=== PATIENT | female | born 1995 | race American Indian/Alaskan Native ===

== ENCOUNTER 2019-04-24 12:16 | Inpatient (IN) | payer BC, MEDICAID ==
[2019-04-24] MEDS ORDERED: AMPICILLIN/NS 2 GM/100 ML 2 GM/100 ML BAG IV ONE ×2 (12:38→13:30)
[2019-04-24] MEDS ORDERED: LACTATED RINGERS 1,000 ML ONE (12:38)
[2019-04-24] MEDS ORDERED: TERBUTALINE 1 MG/1 ML INJ IVP PRN (13:30)
[2019-04-24] MEDS ORDERED: MINERAL OIL 30 ML ORAL LIQD PO PRN (13:30)
[2019-04-24] MEDS ORDERED: ePHEDrine SULFATE 50 MG/1 ML INJ IV PRN (13:30)
[2019-04-24] MEDS ORDERED: fentaNYL 100 MCG/2 ML INJ IV PRN (13:30)
[2019-04-24] MEDS ORDERED: LIDOCAINE (2%) 20 MG/1 ML VIAL 20 ML MDV INFILTRATI ONE ×2 (13:30→17:27)
[2019-04-24] MEDS ORDERED: TERBUTALINE 1 MG/1 ML INJ SUB-Q PRN (13:30)
--- NOTE | 2019-04-24 13:41 | History and Physical Report ---
History of Present Illness Date of examination: 04/24/19 Date of admission: 04/24/19 Chief complaint: Contractions History of present illness: 24yo G 2 P 0 0 1 0 at 40 weeks gestation here with c/o UCs q5mins that started on 04/23/19. She reports +FMs but denies VB or LOF. She is a [employer] patient who initiated care at 21 weeks gestation. 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 LABS: O pos, Antibody Screen neg, RI, VDRL NR, HBsAg neg, HIV neg, , HSV II pos, Diabetes Screen 87, GC/CT/Trich neg, GBS pos. Past History Past Medical History: asthma Past Surgical History: no surgical history [employer] History: herpes Family/Genetic History: hypertension, other (Lupus) Social history: single, lives with family, full code. denies: smoking, alcohol abuse, prescription drug abuse, IV drug use - Obstetrical History Expected Date of Delivery: 04/24/19 Actual Gestation: 40 Week(s) 0 Day(s) : 2 Para: 0 Hx # Term Pregnancies: 0 Number of Pregnancies: 0 Spontaneous Abortions: 1 Induced : 0 Number of Living Children: 0 Medications and Allergies Allergies Allergy/AdvReac Type Severity Reaction Status Date / Time iodine Allergy Rash Verified 04/24/19 13:29 sulfamethoxazole AdvReac Angioedema Verified 04/24/19 13:46 [From Bactrim] trimethoprim [From Bactrim] AdvReac Angioedema Verified 04/24/19 13:46 Active Meds: Active Medications Ephedrine Sulfate (Ephedrine Sulfate) 10 mg IV Q2M PRN PRN Reason: Hypotension Fentanyl (Sublimaze) 100 mcg IV Q2H PRN PRN Reason: Labor Pain Oxytocin/Sodium Chloride (Pitocin/Ns 20 Unit/1000ml Drip) 20 units in 1,000 mls @ 125 mls/hr IV DIRECT JENN Lactated Ringer's (Lactated Ringers) 1,000 mls @ 125 mls/hr IV DIRECT JENN Ampicillin Sodium (Ampicillin/Ns 2 Gm/100 Ml) 2 gm in 100 mls @ 100 mls/hr IV ONCE ONE; Protocol Stop: 04/24/19 14:29 Ampicillin Sodium (Ampicillin/Ns 1 Gm/50 Ml) 1 gm in 50 mls @ 100 mls/hr IV Q4HR JENN; Protocol Lidocaine (Xylocaine 2%) 20 ml INFILTRATI ONCE ONE Stop: 04/24/19 13:31 Mineral Oil (Mineral Oil) 30 ml PO QHS PRN PRN Reason: Constipation Terbutaline Sulfate (Brethine) 0.25 mg SUB-Q ONCE PRN PRN Reason: Hyperstimulation/Hypertonicity Terbutaline Sulfate (Brethine) 0.25 mg IVP ONCE PRN PRN Reason: Hyperstimulation/Hypertonicity Review of Systems All systems: negative - Vital Signs Vital signs: Vital Signs Pulse BP 87 140/84 04/24/19 13:23 04/24/19 13:23 Temp Pulse Resp BP Pulse Ox 98.2 F 81 16 116/67 04/24/19 13:25 04/24/19 13:25 04/24/19 13:25 04/24/19 13:25 - Obstetrical FHR: auscultation normal, category 1 FHR comments: baseline 135, moderate variability, 15x15 accels, no decels Uterine Contraction Monitor Mode: External Cervical Dilatation: 8 (per RN) Cervical Effacement Percentage: 100 (per RN) station: 0 (per RN) Uterine Contraction Frequency (min): 3-5 Uterine Contraction Pattern: Regular Results All other labs normal. Assessment and Plan - Patient Problems (1) 40 weeks gestation of Current Visit: Yes Status: Acute (2) Active labor at term Current Visit: Yes Status: Acute Plan to address problem: Admit to L&D with routine labor orders Anticipate vaginal delivery (3) Group B Streptococcus carrier, +RV culture, currently Current Visit: Yes Status: Acute Plan to address problem: GBS prophylaxis initiated (4) Insufficient care in third trimester Current Visit: Yes Status: Acute Plan to address problem: UDS ordered
[2019-04-24] MEDS ORDERED: OXYTOCIN 20 UNIT/1000ML DRIP 20 UNITS/1,000 ML BAG IV SCH (14:00)
[2019-04-24] MEDS ORDERED: LACTATED RINGERS 1,000 ML IV SCH (14:00)
[2019-04-24 14:19] LABS: Hematocrit 30.9 % (30.3-42.9); Hemoglobin 10.8 gm/dl (10.1-14.3); Mean Corpuscular HGB Conc 35 % (30-34); Mean Corpuscular Volume 92 fl (79-97); Platelet Count 225 K/mm3 (140-440); Red Blood Count 3.37 M/mm3 (3.65-5.03); Red Cell Distribution Width 13.5 % (13.2-15.2)
[2019-04-24 16:47] LABS: Amphetamine Screen,Urine PRESUMPTIVE NEGATIVE; Benzodiazepines Screen,Urine PRESUMPTIVE NEGATIVE; Cannabinoid Screen,Urine PRESUMPTIVE NEGATIVE; Cocaine Screen,Urine PRESUMPTIVE NEGATIVE; Methadone Screen,Urine PRESUMPTIVE NEGATIVE; Opiate Screen,Urine PRESUMPTIVE NEGATIVE
[2019-04-24] MEDS ORDERED: AMPICILLIN/NS 1 GM/50 ML 1 GM/50 ML BAG IV SCH (17:00)
--- NOTE | 2019-04-24 18:21 | Procedure Note ---
OB Delivery Note - Delivery Date of Delivery: 04/24/19 (17:24) Surgeon: LILIAN CAROLINA (DIANNAM) Estimated blood loss: 200cc - Vaginal Delivery presentation: vertex Delivery position: OA Intrapartum events: meconium (light) Delivery induction: none Delivery augmentation: rupture of membranes (AROM) Delivery monitor: external FHT, external uterine Route of delivery: (17:24) Delivery placenta: spontaneous (17:28) Delivery cord: nuchal cord (CAN x2; reduced after delivery of head), 3 umbilical vessels Delivery laceration: 1st degree (vaginal, perineal) Delivery repair: vicryl (3-0 CT1 & SH) Anesthesia: local Delivery comments: of a less vigorous 7 lbs 9 oz male on 04/24/19 @ 17:24. Baby bulb-suctioned, dried and placed on maternal abdomen. Baby vigorous with stimulation. After 2 mins, umbilical cord double-clamped by me and cut by FOB. Cord blood collected. Spontaneous delivery of placenta, Jeniffer-side presenting at 17:28. Moderate lochia present. Fundal massage and IV Pitocin bolus initiated. Fundus F/ML/U-1. Placenta intact. Patient requests to take placenta home. First degree vaginal & perineal laceration noted and repaired under local anesthesia. Patient tolerated the procedure well. in progress. Mom and baby in stable condition. - Infant A at 1 minute: 8 at 5 minutes: 9 Infant Gender: Male (7 lbs 9 oz (3432 gm); 20 in)
[2019-04-24] MEDS ORDERED: PROMETHAZINE 25 MG RECT SUPP PR PRN (18:24)
[2019-04-24] MEDS ORDERED: diphenhydrAMINE 25 MG CAP PO PRN (18:24)
[2019-04-24] MEDS ORDERED: BENZOCAINE/MENTHOL 20/0.5% TOP SPRAY 56 GM TP PRN (18:24)
[2019-04-24] MEDS ORDERED: PROMETHAZINE 25 MG TAB PO PRN (18:24)
[2019-04-24] MEDS ORDERED: MAGNESIUM HYDROXIDE (MOM) ORAL LIQD UDC PO PRN (18:24)
[2019-04-24] MEDS ORDERED: WITCH HAZEL/ GLYCERIN PAD TP PRN (18:24)
[2019-04-24] MEDS ORDERED: ACETAMINOPHEN 325 MG TAB PO PRN (18:24)
[2019-04-24] MEDS ORDERED: LANOLIN/ZINC/DIMETHICONE (LANSINOH) 7 GM TP PRN (18:24)
[2019-04-24] MEDS ORDERED: ONDANSETRON 4 MG/2 ML INJ IV PRN (18:24)
[2019-04-24] MEDS: IBUPROFEN 600 MG TAB PO SCH (19:14)
[2019-04-25] MEDS: IBUPROFEN 600 MG TAB PO SCH ×3 (00:44→18:49)
[2019-04-25 06:21] LABS: Hematocrit 29.8 % (30.3-42.9); Hemoglobin 10.3 gm/dl (10.1-14.3)
[2019-04-25] MEDS: HYDROcodone/ACETAMINOPHEN 5-325 MG TAB PO PRN (08:42)
--- NOTE | 2019-04-25 10:46 | Progress Note ---
Assessment and Plan - Patient Problems (1) Status post normal vaginal delivery Current Visit: Yes Status: Acute Plan to address problem: Continue routine PP orders Anticipate d/c home tomorrow (2) Anemia Current Visit: Yes Status: Acute Qualifiers: Anemia type: iron deficiency Plan to address problem: Asymptomatic Continue daily oral iron supplementation as directed Increase iron rich foods into diet Subjective - Subjective Date of service: 04/25/19 Principal diagnosis: S/P ; PPD#1 Interval history: See admission H & P; OB delivery summary and PP progress notes Patient reports: appetite normal, voiding normally, pain well controlled (but reports some tenderness in perineum, advised her to use ice packs, prn in addition to Ibuprofen), flatus, ambulating normally : doing well () Objective - Vital Signs Latest vital signs: Vital Signs Temp Pulse Resp BP BP Pulse Ox 04/25/19 08:42 20 04/25/19 08:32 98.8 F 89 18 113/72 99 04/25/19 01:25 98.7 F 75 18 109/54 98 04/25/19 00:44 20 04/24/19 20:15 77 115/63 04/24/19 19:03 98.4 F 87 16 111/61 111/61 100 04/24/19 19:02 89 99 04/24/19 18:10 98.2 F 75 16 119/65 119/65 100 04/24/19 18:09 74 100 04/24/19 16:12 97 H 137/73 04/24/19 15:46 98 H 100 04/24/19 15:41 72 100 04/24/19 15:34 111 H 100 04/24/19 15:29 94 H 100 04/24/19 15:24 90 100 04/24/19 15:19 76 100 04/24/19 15:14 63 130/71 99 04/24/19 13:25 98.2 F 81 16 116/67 116/67 04/24/19 13:23 87 140/84 Intake and Output 04/24/19 04/25/19 04/25/19 23:59 07:59 15:59 Intake Total 240 480 Output Total 400 700 Balance -160 -220 Intake: Oral 240 480 Output: Urine 400 700 Void 400 700 Other: Total, Intake Amount 240 240 Total, Output Amount 400 400 Estimated Blood Loss 200 - Exam Breasts: Present: normal Cardiovascular: Present: Regular rate Lungs: Present: Normal air movement Abdomen: Present: soft Uterus: Present: firm, fundal height below umbilicus (U-1) Extremities: Present: normal Deep Tendon Reflex Grade: Normal +2 Incision: Present: other (1st degree laceration, healing as expected) - Labs Labs: Abnormal lab results 04/24/19 04/25/19 Range/Units 13:50 05:57 WBC 12.9 H (4.5-11.0) K/mm3 RBC 3.37 L (3.65-5.03) M/mm3 Hct 29.8 L (30.3-42.9) % MCHC 35 H (30-34) %
--- NOTE | 2019-04-25 10:50 | Discharge Summary ---
Providers - Providers Date of Admission: 04/24/19 12:17 Date of discharge: 04/26/19 (1200) Attending physician: RYLEE CONTI MD Primary care physician: RYLEE CONTI MD Hospitalization Reason for admission: active labor, IUP at term Delivery: Episiotomy: none Laceration: 1st degree (healing as expected) Other procedures: none complications: none Discharge diagnosis: IUP at term delivered, other (anemia) baby: male Hospital course: See admission H & P; OB delivery summary and PP progress notes Condition at discharge: Stable Disposition: DC-01 TO HOME OR SELFCARE - Discharge Diagnoses (1) Status post normal vaginal delivery Status: Acute (2) Anemia Status: Acute Qualifiers: Anemia type: iron deficiency Plan - Discharge Medications Prescriptions: Ferrous Sulfate [Feosol 325 MG tab] 325 mg PO QDAY 30 Days #30 tablet - Provider Discharge Summary Activity: routine, no sex for 6 weeks, no heavy lifting 4 weeks, no strenuous exercise Diet: other (Iron rich diet) Instructions: routine Additional instructions: [] Smoking cessation referral if applicable(refer to patient education folder for contact #) [] Refer to [facility] Booklet Call your doctor immediately for: * Fever > 100.5 * Heavy vaginal bleeding ( >1 pad per hour) * Severe persistent headache * Shortness of breath * Reddened, hot, painful area to leg or breast * Drainage or odor from incision. * Keep laceration site clean and dry at all times and follow doctor's instructions regarding bathing/showering - Follow up plan Follow up: RYLEE CONTI MD [Primary Care Provider] - 6 Weeks
[2019-04-25] MEDS: FERROUS SULFATE 325 MG TAB PO SCH (11:02)
[2019-04-25] MEDS: PRENATAL VIT27-FE FUMARATE-FOLIC ACID VIT TAB PO SCH (11:03)
[2019-04-26 09:46] VITALS: BP 109/63
[2019-04-26] MEDS: HYDROcodone/ACETAMINOPHEN 5-325 MG TAB PO PRN (10:38)
[2019-04-26] MEDS: FERROUS SULFATE 325 MG TAB PO SCH (10:39)
[2019-04-26] MEDS: PRENATAL VIT27-FE FUMARATE-FOLIC ACID VIT TAB PO SCH (10:39)
== END 2019-04-26 17:30 | disposition home or self-care (01) | DRG 807 ==
LOC: TRG 12:16 → LD 12:16 → TRG 12:17 → OB 20:22
PROVIDERS: ADMIT Obstetrics & Gynecology; ATTEND Obstetrics & Gynecology
PROC: 10E0XZZ Delivery of Products of Conception, External Approach (ICD-10-PCS; principal; 2019-04-24)
PROC: 0UQGXZZ Repair Vagina, External Approach (ICD-10-PCS; 2019-04-24)
DX: O99.824 Streptococcus B carrier state complicating childbirth (principal); Z37.0 Single live birth; O99.52 Diseases of the respiratory system complicating childbirth; Z3A.40 40 weeks gestation of pregnancy; Z88.3 Allergy status to other anti-infective agents; Z88.8 Allergy status to other drugs, medicaments and biological substances; J45.909 Unspecified asthma, uncomplicated; Z82.49 Family history of ischemic heart disease and other diseases of the circulatory system; O77.0 Labor and delivery complicated by meconium in amniotic fluid; O69.81X0 Labor and delivery complicated by cord around neck, without compression, not applicable or unspecified; O71.4 Obstetric high vaginal laceration alone; O90.81 Anemia of the puerperium; D64.9 Anemia, unspecified
CPT/HCPCS: 36415; 80307; 85014; 85018; 85027; 86592; 86850; 86900; 86901; 96360; 96365; G0378; A6250; J0290; J2590; J7120